=== PATIENT | female | born 1990 | race Caucasian/White ===

== ENCOUNTER 2016-08-08 12:02 | Emergency (ER) | payer OTHER ==
[~2016-08-08] VITALS: Ht 165.1 cm; Wt 63.5 kg
[2016-08-08 13:21] VITALS: BP 109/64
[2016-08-08] MEDS ORDERED: IV NORMAL SALINE 1000ML BAG 1,000 ML IV SCH (14:30)
[2016-08-08] MEDS ORDERED: ONDANSETRON PF 4 MG/2 ML VIAL. IV ONE (14:30)
[2016-08-08] MEDS ORDERED: ONDANSETRON ODT 4 MG TAB.RAPDIS ONE (14:43)
[2016-08-08] MEDS ORDERED: ONDANSETRON ODT 4 MG TAB.RAPDIS PO ONE (15:00)
[2016-08-08 15:04] LABS: BILIRUBIN,URINE NEGATIVE (NEG); GLUCOSE,URINE NEGATIVE (NEG); NITRITE,URINE NEGATIVE (NEG); PROTEIN,URINE NEGATIVE (NEG-TRACE); UROBILINOGEN,URINE 0.2 mg/dL (0.2 mg/dL)
[2016-08-08 15:22] LABS: BACTERIA,URINE FEW /HPF (0-FEW); RBC,URINE 0 /HPF (0-2); SQUAMOUS EPITHELIAL CELL,UR MOD /LPF; WBC,URINE RARE /HPF (0-4)
[2016-08-08 15:34] LABS: OBC FLU VALID
[2016-08-08] MEDS ORDERED: OSEL75CA PO (15:41)
[2016-08-08] MEDS ORDERED: ONDA4TAB10 SL (15:41)
--- NOTE | 2016-08-08 15:43 | PHYS DOC ---
Past Medical History Past Medical History: No Pertinent History Past Surgical History: No Surgical History Alcohol Use: None Drug Use: None Adult General Chief Complaint Chief Complaint: VOMITING IN HPI HPI Patient is a 26 year old female approximately 16 weeks who presents with intermittent nonbloody nonbilious emesis over the past 24 hours. States has mild resting nausea, but nausea becomes severe when trying to eat or drink. She denies abdominal pain, fever or chills, dysuria, hematuria. She notes myalgia and slight fatigue. States her was diagnosed with influenza B recently. She does note some mild constipation throughout her . She denies bloody stools or rectal pain. She feels normal movement. Review of Systems Review of Systems Constitutional: Denies fever or chills [] Eyes: Denies change in visual acuity, redness, or eye pain [] HENT: Denies nasal congestion or sore throat [] Respiratory: Denies cough or shortness of breath [] Cardiovascular: No additional information not addressed in HPI [] GI: Denies abdominal pain, bloody stools or diarrhea [] : Denies dysuria or hematuria [] Musculoskeletal: Denies back pain or joint pain [] Integument: Denies rash or skin lesions [] Neurologic: Denies headache, focal weakness or sensory changes [] Endocrine: Denies polyuria or polydipsia [] Current Medications Current Medications Current Medications Medications (Trade) Dose Ordered Sig/Teresa Start Time Stop Time Status Last Admin Dose Admin Ondansetron HCl (Zofran Odt) 4 mg STK-MED ONCE 08/08/16 14:43 08/08/16 14:44 DC Ondansetron HCl (Zofran) 4 mg 1X ONCE 08/08/16 14:30 08/08/16 14:41 DC Sodium Chloride (Iv Sodium Chloride 0.9% 1000ml Bag) 1,000 ml @ 1,000 mls/hr Q1H 08/08/16 14:30 08/08/16 14:40 DC Allergies Allergies Allergies Coded Allergies Type Severity Reaction Last Updated Verified No Known Drug Allergies 08/08/16 No Physical Exam Physical Exam Constitutional: Well developed, well nourished, no acute distress, non-toxic appearance. [] HENT: Normocephalic, atraumatic, bilateral external ears normal, oropharynx moist, no oral exudates, nose normal. [] Eyes: PERRLA, EOMI, conjunctiva normal, no discharge. [] Neck: Normal range of motion, supple. [] Cardiovascular:Heart rate regular rhythm [] Lungs & Thorax: Bilateral breath sounds clear to auscultation [] Abdomen: Bowel sounds normal, soft, no tenderness, gravid below umbilicus. [] Skin: Warm, dry, no erythema, no rash. [] Back: No tenderness, no CVA tenderness. [] Extremities: No tenderness, ROM intact, no edema. [] Neurologic: Alert and oriented X 3, normal motor function, normal sensory function, no focal deficits noted. [] Psychologic: Affect normal, judgement normal, mood normal. [] Current Patient Data Vital Signs Vital Signs Date Time Temp Pulse Resp B/P Pulse Ox O2 Delivery O2 Flow Rate FiO2 08/08/16 13:21 99.5 106 20 109/64 100 Room Air 99.5 Lab Values Laboratory Tests Test 08/08/16 13:00 08/08/16 13:13 08/08/16 14:41 Urine Collection Type Unknown Urine Color Yellow Urine Clarity Clear Urine pH 6.0 Urine Specific Pony 1.010 Urine Protein Negativemg/dL (NEG-TRACE) Urine Glucose (UA) Negativemg/dL (NEG) Urine Ketones (Stick) >=80mg/dL (NEG) Urine Blood Negative (NEG) Urine Nitrite Negative (NEG) Urine Bilirubin Negative (NEG) Urine Urobilinogen Dipstick 0.2mg/dL (0.2 mg/dL) Urine Leukocyte Esterase Negative (NEG) Urine RBC 0/HPF (0-2) Urine WBC Rare/HPF (0-4) Urine Squamous Epithelial Cells Mod/LPF Urine Bacteria Few/HPF (0-FEW) Urine Mucus Mod/LPF POC Urine HCG, Qualitative Hcg positive (Negative) Influenza Type A Antigen Negative (NEGATIVE) Influenza Type B Antigen Positive (NEGATIVE) Course & Med Decision Making Course & Med Decision Making Pertinent Labs and Imaging studies reviewed. (See chart for details) Urine shows signs of dehydration. She is feeling better after medication here and tolerating oral intake. Influenza B is positive, so will treat with Tamiflu. Discussed supportive care for constipation. 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 Return precautions given. She understands and agrees with plan. Bishop Disclaimer Bishop Disclaimer This electronic medical record was generated, in whole or in part, using a voice recognition dictation system. Departure Departure Impression: Primary Impression: Influenza Additional Impression: Nausea and vomiting during Disposition: 01 HOME, SELF-CARE Condition: STABLE Referrals: NO PCP (PCP) Patient Instructions: Influenza, Adult, [id number] Additional Instructions: Take Zofran as needed for nausea. Take Tamiflu to help influenza. Follow-up with your OB doctor within one week. Return for any concerns. Scripts Oseltamivir Phosphate (Tamiflu)75 Mg Capsule1 Cap PO BID #10 CAP Prov:Hector MORLEY MD 08/08/16 Ondansetron (Zofran Odt)4 Mg Tab.rapdis1 Tab SL Q8HRS PRN NAUSEA #10 TAB Prov:Hector MORLEY MD 08/08/16 Problem Qualifiers Hector MORLEY MD Aug 08, 2016 15:43
== END 2016-08-08 16:25 | disposition home or self-care (01) ==
LOC: ER 12:02
DX: O21.0 Mild hyperemesis gravidarum (principal); O99.512 Diseases of the respiratory system complicating pregnancy, second trimester; J11.1 Influenza due to unidentified influenza virus with other respiratory manifestations; K59.00 Constipation, unspecified; M79.1 Myalgia; Z3A.16 16 weeks gestation of pregnancy
CPT/HCPCS: 81001; 81025; 87804; 99284; Q0162

== ENCOUNTER 2016-12-07 20:18 | Observation (INO) | payer OTHER ==
[~2016-12-07 20:18] MED LIST: ONDA4TAB10 SL; OSEL75CA PO
[2016-12-07] MEDS ORDERED: IV RINGERS,LACTATED 1000ML 1,000 ML IV SCH (20:32)
[2016-12-07 20:46] LABS: BILIRUBIN,URINE NEGATIVE (NEG); GLUCOSE,URINE NEGATIVE (NEG); NITRITE,URINE NEGATIVE (NEG); PH,URINE 6.5; PROTEIN,URINE NEGATIVE (NEG-TRACE)
[2016-12-07 20:52] LABS: BACTERIA,URINE MODERATE /HPF (0-FEW); RBC,URINE 0 /HPF (0-2); SQUAMOUS EPITHELIAL CELL,UR MANY /LPF
[2016-12-07 20:53] LABS: BARBITURATES NEG (NEG); BENZODIAZEPINES NEG (NEG); CANNABINOIDS NEG (NEG); COCAINE NEG (NEG); METHADONE NEG (NEG); OPIATES NEG (NEG); PHENCYCLIDINE NEG (NEG)
== END 2016-12-07 21:40 | disposition home or self-care (01) ==
LOC: 3 SO LND 20:18
PROVIDERS: ADMIT Specialist; ATTEND Specialist
DX: O36.8130 Decreased fetal movements, third trimester, not applicable or unspecified (principal); O26.893 Other specified pregnancy related conditions, third trimester; R10.30 Lower abdominal pain, unspecified; Z3A.34 34 weeks gestation of pregnancy
CPT/HCPCS: 81001; 87086; G0378; G0379; G0481

== ENCOUNTER 2016-12-21 10:39 | Observation (INO) | payer OTHER ==
[2016-12-21 11:40] LABS: BILIRUBIN,URINE NEGATIVE (NEG); GLUCOSE,URINE NEGATIVE (NEG); NITRITE,URINE NEGATIVE (NEG); PROTEIN,URINE NEGATIVE (NEG-TRACE); UROBILINOGEN,URINE 0.2 mg/dL (0.2 mg/dL)
[2016-12-21] MEDS ORDERED: IV RINGERS,LACTATED 1000ML 1,000 ML IV SCH (12:00)
== END 2016-12-21 14:55 | disposition home or self-care (01) ==
LOC: 3 SO LND 10:39
PROVIDERS: ADMIT Specialist; ATTEND Specialist
DX: O26.893 Other specified pregnancy related conditions, third trimester (principal); R10.30 Lower abdominal pain, unspecified; Z3A.36 36 weeks gestation of pregnancy
CPT/HCPCS: 81003; 96360; 96361; G0378; G0379; J7120

== ENCOUNTER 2017-01-01 01:19 | Observation (INO) | payer OTHER ==
[2017-01-01] MEDS ORDERED: IV RINGERS,LACTATED 1000ML 1,000 ML IV SCH (01:20)
[2017-01-01 01:47] LABS: BILIRUBIN,URINE NEGATIVE (NEG); GLUCOSE,URINE NEGATIVE (NEG); NITRITE,URINE NEGATIVE (NEG); PH,URINE 6.5; PROTEIN,URINE NEGATIVE (NEG-TRACE); UROBILINOGEN,URINE 0.2 mg/dL (0.2 mg/dL)
[2017-01-01 01:53] LABS: BACTERIA,URINE FEW /HPF (0-FEW); BARBITURATES NEG (NEG); BENZODIAZEPINES NEG (NEG); CANNABINOIDS NEG (NEG); COCAINE NEG (NEG); METHADONE NEG (NEG); OPIATES NEG (NEG); PHENCYCLIDINE NEG (NEG); RBC,URINE OCC /HPF (0-2); SQUAMOUS EPITHELIAL CELL,UR MOD /LPF
[2017-01-01] MEDS ORDERED: PANTOPRAZOLE 40 MG TABLET.DR. PO ONE (03:00)
== END 2017-01-01 03:03 | disposition home or self-care (01) ==
LOC: 3 SO LND 01:19
PROVIDERS: ADMIT Obstetrics & Gynecology; ATTEND Obstetrics & Gynecology
DX: O26.893 Other specified pregnancy related conditions, third trimester (principal); M54.5 Low back pain; R10.13 Epigastric pain; R10.2 Pelvic and perineal pain; Z3A.38 38 weeks gestation of pregnancy
CPT/HCPCS: 81001; 87086; G0378; G0379; G0481

== ENCOUNTER 2017-01-09 05:52 | Inpatient (IN) | payer OTHER ==
[~2017-01-09] VITALS: Ht 160 cm; Wt 78.3 kg
[2017-01-09] MEDS ORDERED: LIDOCAINE 1% PF 30 ML VIAL. INJ PRN (06:00)
[2017-01-09] MEDS ORDERED: BUTORPHANOL 2 MG/ML VIAL. IV PRN (06:00)
[2017-01-09] MEDS ORDERED: TERBUTALINE 1 MG/ML VIAL. SQ PRN (06:00)
[2017-01-09] MEDS ORDERED: fentaNYL PF VIAL 100 MCG/2 ML VIAL IV PRN (06:00)
[2017-01-09] MEDS ORDERED: OXYTOCIN 30 UNIT/500 ML PREMIX 500 ML IV PRN ×2 (06:00→17:15)
[2017-01-09] MEDS ORDERED: IBUPROFEN 800 MG TABLET. PO PRN (06:00)
[2017-01-09] MEDS ORDERED: 0.9 % SODIUM CHLORIDE 10 ML DISP.SYRIN. IV PRN ×2 (06:00→17:15)
[2017-01-09] MEDS ORDERED: ONDANSETRON PF 4 MG/2 ML VIAL. IV PRN (06:00)
[2017-01-09 06:32] VITALS: BP 121/67
[2017-01-09 06:45] LABS: HEMATOCRIT 30.5 % (36.0-47.0); HEMOGLOBIN 10.1 g/dL (12.0-15.5); RED BLOOD COUNT 3.66 x10^6/uL (3.50-5.40); RED CELL DISTRIBUTION WIDTH 14.9 % (11.5-14.5); WHITE BLOOD COUNT 15.4 x10^3/uL (4.0-11.0)
[2017-01-09 06:47] LABS: BILIRUBIN,URINE NEGATIVE (NEG); GLUCOSE,URINE NEGATIVE (NEG); NITRITE,URINE NEGATIVE (NEG); PROTEIN,URINE NEGATIVE (NEG-TRACE); UROBILINOGEN,URINE 0.2 mg/dL (0.2 mg/dL)
[2017-01-09] MEDS: IV RINGERS,LACTATED 1000ML 1,000 ML IV SCH ×2 (06:49→11:59)
[2017-01-09 06:52] LABS: CALCIUM 8.6 mg/dL (8.5-10.1); CREATININE 0.6 mg/dL (0.6-1.0); GFR 119.9; POTASSIUM 4.2 mmol/L (3.5-5.1)
[2017-01-09 06:56] LABS: BACTERIA,URINE MODERATE /HPF (0-FEW); BARBITURATES NEG (NEG); BENZODIAZEPINES NEG (NEG); CANNABINOIDS NEG (NEG); COCAINE NEG (NEG); METHADONE NEG (NEG); OPIATES NEG (NEG); PHENCYCLIDINE NEG (NEG); RBC,URINE OCC /HPF (0-2); SQUAMOUS EPITHELIAL CELL,UR MANY /LPF
[2017-01-09 06:57] LABS: ALBUMIN 2.3 g/dL (3.4-5.0); ALBUMIN/GLOBULIN RATIO 0.6 (1.0-1.7); TOTAL BILIRUBIN 0.1 mg/dL (0.2-1.0); TOTAL PROTEIN 5.9 g/dL (6.4-8.2)
[2017-01-09] MEDS: OXYTOCIN 30 UNIT/500 ML PREMIX 500 ML IV PRN ×3 (07:23→19:22)
[2017-01-09] MEDS ORDERED: ROPIVacaine 0.2% IN 0.9%NACL PF 40 MG/20 ML DISP.SYRIN. ONE ×2 (11:52→12:00)
[2017-01-09] MEDS ORDERED: L&D EPIDURAL CASSETTE 100 ML EP ONE (11:53)
[2017-01-09] MEDS ORDERED: L&D EPIDURAL CASSETTE 100 ML PUMP.RESVR. EP ONE (12:00)
[2017-01-09] MEDS ORDERED: ZOLPIDEM 5 MG TABLET. PO PRN (17:15)
[2017-01-09] MEDS ORDERED: diphenhydrAMINE HCL 25 MG CAPSULE PO PRN (17:15)
[2017-01-09] MEDS ORDERED: BENZOCAINE 20% TOPICAL AEROSOL SPRAY 57GM CAN. TP PRN (17:15)
[2017-01-09] MEDS ORDERED: SIMETHICONE 80 MG TAB.CHEW PO PRN (17:15)
[2017-01-09] MEDS ORDERED: HYDROCORTISONE 1% TOPICAL OINTMENT 30GM TUBE. TP PRN (17:15)
[2017-01-09] MEDS ORDERED: ACETAMINOPHEN 325 MG TABLET. PO PRN (17:15)
[2017-01-09] MEDS ORDERED: MAGNESIUM HYDROXIDE 2,400 MG/30 ML ORAL.SUSP. PO PRN (17:15)
[2017-01-09] MEDS ORDERED: PHENYLEPH/MINERAL OIL/PETROLAT RECTAL OINTMENT 28GM TUBE. RC PRN (17:15)
[2017-01-09] MEDS ORDERED: MAG HYDROX/ALUMINUM HYD/SIMETH 30 ML ORAL.SUSP PO PRN (17:15)
--- NOTE | 2017-01-09 18:14 | PDOC ---
VAGINAL DELIVERY DATE DATE: 01/09/17 TIME: 18:12 : 1 EDC: Jan 14, 2017 VAGINAL DELIVERY: VTX VACCUM ASSISTED: Yes NUMBER OF PULLS 3 NUMBER OF POP OFFS 1 SEX: Male WEIGHT 7/1 Nuchal Cord: No Amniotic Fluid: Clear PAIN: Epidural EPISIOTOMY: Yes EXTENSION: No EBL 400cc COMPLICATIONS None CONDITION Stable Signs of Intrauterine Infectio: None Shoulder Dystocia: No DIAGNOSIS TIUP del Problems: BUZZ FRIEDMAN MD Jan 09, 2017 18:14
[2017-01-09] MEDS: IBUPROFEN 800 MG TABLET. PO SCH (19:21)
[2017-01-09] MEDS ORDERED: AMMONIA AROMATIC 15% INHALANT AMPUL. ONE (20:59)
[2017-01-09 21:05] VITALS: BP 88/54
[2017-01-09 22:15] VITALS: BP 93/59
[2017-01-10] MEDS: IBUPROFEN 800 MG TABLET. PO SCH ×3 (03:05→22:19)
[2017-01-10] MEDS: HYDROcodone/APAP 5/325MG 1 TAB TABLET PO PRN ×3 (03:05→22:19)
[2017-01-10 03:08] VITALS: BP 111/70
[2017-01-10 08:00] VITALS: BP 108/63
[2017-01-10 10:46] LABS: HEMATOCRIT 22.3 % (36.0-47.0); HEMOGLOBIN 7.5 g/dL (12.0-15.5)
[2017-01-10] MEDS: FERROUS SULFATE 325 MG TABLET. PO SCH ×2 (11:06→18:27)
[2017-01-10 13:18] LABS: RPR REFLEX Non Reactive (Non Reactive)
--- NOTE | 2017-01-10 15:53 | PDOC ---
Provider Note Provider Note No Complaints VSS Uterus NTTP Fu in AM CBC - BMP 01/10/17 07:30 01/10/17 10:20 Vital Sign - Last 24 Hours 01/09/17 01/09/17 01/10/17 01/10/17 21:05 22:15 03:05 03:08 Temp 97.7 98.1 98.2 97.7 98.1 98.2 Pulse 96 94 102 Resp 18 18 18 18 B/P (MAP) 88/54 (65) 93/59 (70) 111/70 (84) Pulse Ox 99 98 98 O2 Delivery Room Air Room Air Room Air Room Air 01/10/17 01/10/17 04:05 08:00 Temp 98.7 98.7 Pulse 103 Resp 18 16 B/P (MAP) 108/63 (78) Pulse Ox 99 O2 Delivery Room Air Room Air Intake and Output 01/09/17 01/09/17 01/10/17 15:00 23:00 07:00 Intake Total 1000 ml 200 ml Balance 1000 ml 200 ml BUZZ FRIEDMAN MD Jan 10, 2017 15:53
[2017-01-10 19:09] VITALS: BP 109/67
[2017-01-10 21:02] VITALS: BP 98/59
[2017-01-11] MEDS: IBUPROFEN 800 MG TABLET. PO SCH (05:51)
[2017-01-11 05:54] VITALS: BP 102/63
[2017-01-11] MEDS: FERROUS SULFATE 325 MG TABLET. PO SCH (09:29)
[2017-01-11 11:20] VITALS: BP 106/62
--- NOTE | 2017-01-11 13:39 | PDOC ---
Provider Note Provider Note Doing well VSS Uterus NTTP DC home BUZZ FRIEDMAN MD Jan 11, 2017 13:39
[2017-01-11] MEDS ORDERED: NAPR500T PO (13:42)
[2017-01-11] MEDS ORDERED: FERR-26 PO (13:42)
[2017-01-11] MEDS ORDERED: HYDR-971 PO (13:42)
--- NOTE | 2017-01-11 13:43 | PDOC3 ---
OB DISCHARGE SUMMARY DATE OF ADMISSION: 01/09/17 DATE OF DISCHARGE: 01/11/17 REASON FOR ADMISSION: Induction of labor PROCEDURES: None INTRAPARTUM PROCEDURES: Spontanous Vag Deliv PROCEDURES: None OPERATIONS: None DISCHARGE DIAGNOSIS: Term Delivered DISCHARGE INFORMATION: Activity, Diet HOSPITAL COURSE unremarkable CONDITION AT DISCHARGE Stable BUZZ FRIEDMAN MD Jan 11, 2017 13:43
[2017-01-11 15:00] VITALS: BP 115/63
== END 2017-01-11 16:00 | disposition home or self-care (01) | DRG 775 ==
LOC: 3 SO LND 05:52 → 3 NORTH 21:05
PROVIDERS: ADMIT Specialist; ATTEND Specialist
PROC: 10D07Z6 Extraction of Products of Conception, Vacuum, Via Natural or Artificial Opening (ICD-10-PCS; principal; 2017-01-09)
PROC: 0W8NXZZ Division of Female Perineum, External Approach (ICD-10-PCS; 2017-01-09)
PROC: 3E0S3CZ (ICD-10-PCS; 2017-01-09)
PROC: 00HU33Z Insertion of Infusion Device into Spinal Canal, Percutaneous Approach (ICD-10-PCS; 2017-01-09)
DX: O80 Encounter for full-term uncomplicated delivery (principal); Z3A.37 37 weeks gestation of pregnancy; Z37.0 Single live birth
CPT/HCPCS: 36415; 80053; 81001; 85014; 85018; 85027; 86593; 86850; 86900; 86901; 87086; C1887; G0481; J2590; J2795; J3010; J7120

== ENCOUNTER 2020-01-25 16:32 | Observation (INO) | payer OTHER ==
[~2020-01-25 16:32] MED LIST changes: +FERR325T14 PO; +HYDR-3164 PO; +NAPR-683 PO
[2020-01-25] MEDS ORDERED: IV RINGERS,LACTATED 1000ML 1,000 ML IV SCH (17:09)
[2020-01-25 17:20] LABS: BILIRUBIN,URINE NEGATIVE (NEG); CLARITY,URINE TURBID; COLOR,URINE YELLOW; NITRITE,URINE NEGATIVE (NEG); PH,URINE 7.5 (<5.0-8.0); PROTEIN,URINE NEGATIVE (NEG-TRACE)
[2020-01-25 17:26] LABS: AMORPHOUS SEDIMENT,UR PRESENT /HPF; SQUAMOUS EPITHELIAL CELL,UR MOD /LPF
[2020-01-25 17:27] LABS: BACTERIA,URINE FEW /HPF (0-FEW); RBC,URINE 0 /HPF (0-2)
[2020-01-25 17:29] LABS: AMPHETAMINE/METHAMPHETAMINE NEG (NEG); BARBITURATES NEG (NEG); BENZODIAZEPINES NEG (NEG); CANNABINOIDS NEG (NEG); COCAINE NEG (NEG); METHADONE NEG (NEG); OPIATES NEG (NEG); PHENCYCLIDINE NEG (NEG)
== END 2020-01-25 19:30 | disposition home or self-care (01) ==
LOC: 3 SO LND 16:32
PROVIDERS: ADMIT Obstetrics & Gynecology; ATTEND Obstetrics & Gynecology
DX: O26.893 Other specified pregnancy related conditions, third trimester (principal); R10.2 Pelvic and perineal pain; R10.30 Lower abdominal pain, unspecified; Z3A.30 30 weeks gestation of pregnancy
CPT/HCPCS: 80307; 81001; 87086; G0378; G0379; 59025

== ENCOUNTER 2021-01-28 21:02 | Emergency (ER) | payer OTHER | END 2021-01-28 21:41 | disposition left against medical advice (07) | LOC: ER 21:02 | DX: S30.860A Insect bite (nonvenomous) of lower back and pelvis, initial encounter (principal); Z53.21 Procedure and treatment not carried out due to patient leaving prior to being seen by health care provider; W57.XXXA Bitten or stung by nonvenomous insect and other nonvenomous arthropods, initial encounter; Y93.89 Activity, other specified; Y92.89 Other specified places as the place of occurrence of the external cause; Y99.8 Other external cause status ==